=== PATIENT | male | born 2000 | race African-American/Black ===

== ENCOUNTER 2021-03-21 19:51 | Emergency (ER) | payer BC, SELFPAY ==
[~2021-03-21] VITALS: Ht 172.7 cm; Wt 75.7 kg
[2021-03-21 21:11] VITALS: BP_SYST 131
--- NOTE | 2021-03-21 23:00 | NUR ---
ER at bedside examining patient.
--- NOTE | 2021-03-21 23:07 | NUR ---
PT ARRIVED BY MOTHER FOR A PINELA CYST HE HAS HAD. 06/17 PAIN. PT HAS SEEN HIS PRIMARY DOCTOR FOR IT AND HAS BEEN PRESCIRBED 2 ANTIBIOTICS FOR IT. JUST WANTS A RE EVAL. MOM AT BEDSIDE
[2021-03-21] MEDS ORDERED: AMPICILLIN SODIUM/SULBACTAM NA 3 GM VIAL ONE (23:13)
[2021-03-21] MEDS ORDERED: AMPICILLIN SODIUM/SULBACTAM NA 3 GM in NS 100 ML IV ONE (23:15)
--- NOTE | 2021-03-21 23:33 | NUR ---
# 20 gauge angiocath placed to RAC. Use of asceptic technique. Opsite placed over site. Blood return noted. Flushed with 10 cc of normal saline. No evidence of infiltration noted. Patient tolerated well.
[2021-03-22 00:10] VITALS: BP_SYST 131
== END 2021-03-22 00:10 | disposition home or self-care (01) ==
LOC: SED 19:51
DX: L05.91 Pilonidal cyst without abscess (principal)
CPT/HCPCS: 87070; 96365; 99284; J0295

== ENCOUNTER 2021-03-23 07:44 | Day surgery (SDC) | payer BC, SELFPAY ==
[2021-03-18 13:23] LABS: BASOPHILS % (AUTO) 0.5 % (0.0-2.0); EOSINOPHILS # (AUTO) 0.1 K/uL (0.0-0.4); HEMATOCRIT 44.9 % (36-54); HEMOGLOBIN 15.3 g/dL (14.0-18.0); LYMPHOCYTES # (AUTO) 1.6 K/uL (1.0-5.5); MEAN CORPUSCULAR HEMOGLOBIN 31 pg (27-31); MEAN CORPUSCULAR HGB CONC 34 % (32-36); MEAN CORPUSCULAR VOLUME 92 fL (79.0-98.0); MONOCYTES # (AUTO) 0.5 K/uL (0.0-1.0); MONOCYTES % (AUTO) 8.1 % (1.7-9.3); NEUTROPHILS # (AUTO) 4.1 K/uL (1.8-7.7); NEUTROPHILS % (AUTO) 65.4 % (40.0-70.0); PLATELET COUNT (AUTO) 243 K/uL (130-430); RED BLOOD CELL COUNT(AUTO) 4.87 MIL/uL (4.2-6.2); RED CELL DISTRIBUTION WIDTH 12.2 % (9.0-15.0); WHITE BLOOD COUNT (AUTO) 6.3 K/uL (4.5-11.0)
[2021-03-18 13:37] LABS: ALBUMIN 4.6 g/dL (3.4-4.8); CALCIUM 9.1 mg/dL (8.4-11.0); CREATININE 0.9 mg/dL (0.55-1.30); POTASSIUM 3.6 mmol/L (3.5-5.1); TOTAL BILIRUBIN 1.2 mg/dL (0.0-1.0)
[~2021-03-23] VITALS: Ht 175.3 cm; Wt 75.7 kg
[~2021-03-23 07:44] MED LIST: CEFAZOLIN SOD 2 GM in D5W 50 ML IV ONE
[2021-03-23] MEDS ORDERED: HYDROGEN PEROXIDE 118 ML SOLUTION MC ONE (09:30)
[2021-03-23] MEDS ORDERED: DEXAMETHASONE SOD PHOSPHATE 4 MG/ML VIAL IVP ONE (09:30)
[2021-03-23] MEDS ORDERED: LR 1,000 ML IV.SOLN IV ONE (09:30)
[2021-03-23] MEDS ORDERED: MIDAZOLAM HCL 5 MG/5 ML VIAL IVP ONE (09:30)
[2021-03-23] MEDS ORDERED: SUCCINYLCHOLINE CHLORIDE 20 MG/ML(QUELICIN) IVP ONE (09:30)
[2021-03-23] MEDS ORDERED: KETOROLAC TROMETHAMINE 30 MG VIAL IVP ONE (09:30)
[2021-03-23] MEDS ORDERED: WATER FOR IRRIGATION,STERILE 1,000 ML IRRIG.SOLN IR ONE (09:30)
[2021-03-23] MEDS ORDERED: BUPIVACAINE /PF 0.25% 30 ML VIAL INJ ONE (09:30)
[2021-03-23] MEDS ORDERED: METOCLOPRAMIDE HCL 10 MG/2 ML VIAL IVP ONE (09:30)
[2021-03-23] MEDS ORDERED: ONDANSETRON HCL 4 MG/2 ML VIAL IVP ONE (09:30)
[2021-03-23] MEDS ORDERED: PROPOFOL 200MG/ 20ML VIAL (DIPRIVAN) IV ONE (09:30)
[2021-03-23] MEDS ORDERED: SEVOFLURANE 15 MIN GAS INH ONE (09:30)
[2021-03-23] MEDS ORDERED: fentaNYL CITRATE 250 MCG/5 ML AMP IV ONE (09:30)
[2021-03-23] MEDS ORDERED: NS IRRIG SOLN 1000 ML IR ONE (09:30)
[2021-03-23 13:35] VITALS: BP_SYST 120
== END 2021-03-23 13:30 | disposition home or self-care (01) ==
LOC: SDS 07:44 → SMU 08:06 → SDS 13:30
PROVIDERS: ATTEND Surgery
DX: L05.01 Pilonidal cyst with abscess (principal); L05.02 Pilonidal sinus with abscess; Z79.899 Other long term (current) drug therapy; Z20.822 Contact with and (suspected) exposure to COVID-19
CPT/HCPCS: 11770; 36415; 71046; 80053; 85025; 88304; J0330; J0690; J1100; J1885; J2250; J2405; J2704; J2765; J3010; J3490; J7060; J7120; U0003